=== PATIENT | female | born 1995 | race Caucasian/White ===

== ENCOUNTER 2020-04-09 10:38 | Observation (INO) | payer OTHER ==
[~2020-04-09] VITALS: Ht 160 cm; Wt 68.5 kg
[~2020-04-09 10:38] MED LIST: COLACE 100MG C100 MG PO
[2020-04-10] MEDS ORDERED: NIFEDIPINE20 MG PO (09:27)
[2020-04-13] MEDS ORDERED: HYDROCODON-ACE1 EAC4 PO (21:28)
[2020-04-13] MEDS ORDERED: IBUPROFEN600 MG PO (21:28)
[2020-04-13] MEDS ORDERED: DOCUSATE SODIU100 MG PO (21:28)
== END 2020-04-10 10:30 | disposition home or self-care (01) ==
LOC: GENOP 10:38 → OB 17:22
PROVIDERS: ADMIT Obstetrics & Gynecology
DX: O26.853 Spotting complicating pregnancy, third trimester (principal); Z3A.30 30 weeks gestation of pregnancy
CPT/HCPCS: 80307; 81001; 82731; 96360; 96361; 96372; G0378; J3105; J7120

== ENCOUNTER 2020-04-13 13:23 | Inpatient (IN) | payer OTHER ==
[~2020-04-13 13:23] MED LIST changes: +NIFEDIPINE20 MG PO
[2020-04-13 14:50] LABS: HEMOGLOBIN 9.5 gm/dl (12.3-15.3); RED BLOOD COUNT 3.35 M/UL (4.00-5.10); WHITE BLOOD COUNT 10.8 K/UL (4.5-11.0)
[2020-04-13] MEDS ORDERED: IBUPROFEN600 MG PO (21:28)
[2020-04-13] MEDS ORDERED: DOCUSATE SODIU100 MG PO (21:28)
[2020-04-13] MEDS ORDERED: HYDROCODON-ACE1 EAC4 PO (21:28)
== END 2020-04-13 23:18 | disposition home or self-care (01) | DRG 806 ==
LOC: GENOP 13:23 → OB 14:36 → GENOP 17:56 → OB 17:56
PROVIDERS: Obstetrics & Gynecology; ADMIT Obstetrics & Gynecology
PROC: 10E0XZZ Delivery of Products of Conception, External Approach (ICD-10-PCS; principal; 2020-04-13)
PROC: 4A1HX4Z Monitoring of Products of Conception, Cardiac Electrical Activity, External Approach (ICD-10-PCS; 2020-04-13)
PROC: 10907ZC Drainage of Amniotic Fluid, Therapeutic from Products of Conception, Via Natural or Artificial Opening (ICD-10-PCS; 2020-04-13)
DX: O60.14X0 Preterm labor third trimester with preterm delivery third trimester, not applicable or unspecified (principal); O36.0930 Maternal care for other rhesus isoimmunization, third trimester, not applicable or unspecified; Z37.0 Single live birth; Z3A.31 31 weeks gestation of pregnancy; Z20.822 Contact with and (suspected) exposure to COVID-19
CPT/HCPCS: 36415; 51702; 80307; 81001; 82800; 85025; 87635; J0290; J2405; J2590; J2795; J3010; J7120